=== PATIENT | female | born 1970 | race Caucasian/White ===

== ENCOUNTER 2018-09-17 10:30 | Outpatient (CLI) | payer OTHER | END 2018-09-17 10:34 | disposition home or self-care (01) | LOC: MAMO-SONO 10:30 | DX: N60.09 Solitary cyst of unspecified breast (principal); Z12.31 Encounter for screening mammogram for malignant neoplasm of breast; N84.0 Polyp of corpus uteri; D21.9 Benign neoplasm of connective and other soft tissue, unspecified ==

== ENCOUNTER 2018-12-26 06:00 | Day surgery (SDC) | payer OTHER ==
[~2018-12-26 06:00] MED LIST: IMITREX50 MG PO
[2018-12-26] MEDS ORDERED: MOTRIN IB200 MG PO (10:57)
== END 2018-12-26 13:00 | disposition home or self-care (01) ==
LOC: CIR.AMB 06:00
DX: N84.0 Polyp of corpus uteri (principal)

== ENCOUNTER → 2020-06-09 | Emergency (ER) | payer OTHER ==
[~2020-06-09] VITALS: Ht 172.7 cm; Wt 78.9 kg
[~2020-06-09] MED LIST changes: +MOTRIN IB200 MG PO
== END | disposition left against medical advice (07) ==
LOC: ER 16:26
DX: S20.212A Contusion of left front wall of thorax, initial encounter (principal); R10.32 Left lower quadrant pain; W22.8XXA Striking against or struck by other objects, initial encounter; Y93.89 Activity, other specified; Y92.018 Other place in single-family (private) house as the place of occurrence of the external cause; Y99.8 Other external cause status

== ENCOUNTER → 2020-12-20 | Outpatient (CLI) | payer OTHER | END | disposition home or self-care (01) | LOC: MAMO-SONO 11:15 | PROVIDERS: ATTEND Obstetrics & Gynecology | DX: N60.11 Diffuse cystic mastopathy of right breast (principal) ==

== ENCOUNTER 2021-04-20 08:20 | Emergency (ER) | payer OTHER ==
[~2021-04-20] VITALS: Ht 152.4 cm; Wt 81.6 kg
[2021-04-20] MEDS ORDERED: KETO10TA2 PO (10:41)
== END 2021-04-20 10:52 | disposition home or self-care (01) ==
LOC: ER 08:20
DX: S82.62XA Displaced fracture of lateral malleolus of left fibula, initial encounter for closed fracture (principal); W01.198A Fall on same level from slipping, tripping and stumbling with subsequent striking against other object, initial encounter; Y93.K1 Activity, walking an animal; Y92.488 Other paved roadways as the place of occurrence of the external cause; Y99.8 Other external cause status

== ENCOUNTER 2021-04-27 08:55 | Outpatient (CLI) | payer OTHER ==
[~2021-04-27 08:55] MED LIST changes: +KETO10TA2 PO
== END 2021-04-27 08:58 | disposition home or self-care (01) ==
LOC: RAD 08:55
PROVIDERS: ATTEND Orthopaedic Surgery
DX: S82.62XA Displaced fracture of lateral malleolus of left fibula, initial encounter for closed fracture (principal)

== ENCOUNTER 2021-06-15 13:22 | Outpatient (CLI) | payer OTHER | END 2021-06-15 13:31 | disposition home or self-care (01) | LOC: RAD 13:22 | PROVIDERS: ATTEND Orthopaedic Surgery | DX: S82.62XD Displaced fracture of lateral malleolus of left fibula, subsequent encounter for closed fracture with routine healing (principal) ==

== ENCOUNTER 2021-08-17 08:48 | Outpatient (CLI) | payer OTHER | END 2021-08-17 09:04 | disposition home or self-care (01) | LOC: RAD 08:48 | PROVIDERS: ATTEND Orthopaedic Surgery | DX: S82.62XD Displaced fracture of lateral malleolus of left fibula, subsequent encounter for closed fracture with routine healing (principal) ==

== ENCOUNTER 2022-10-16 13:35 | Outpatient (CLI) | payer OTHER | END 2022-10-16 13:47 | disposition home or self-care (01) | LOC: MAMO-SONO 13:35 | PROVIDERS: ATTEND Obstetrics & Gynecology | DX: Z12.31 Encounter for screening mammogram for malignant neoplasm of breast (principal); N60.11 Diffuse cystic mastopathy of right breast; N60.12 Diffuse cystic mastopathy of left breast ==

== ENCOUNTER → 2022-12-07 | Outpatient (CLI) | payer OTHER | END | disposition home or self-care (01) | LOC: MAMO-SONO 13:47 | PROVIDERS: ATTEND Surgery | DX: D24.1 Benign neoplasm of right breast (principal) ==

== ENCOUNTER 2023-09-18 14:48 | Emergency (ER) | payer OTHER ==
[~2023-09-18] VITALS: Ht 175.3 cm; Wt 80.7 kg
[2023-09-18] MEDS ORDERED: AMOX-CLAV 875-1 EAC1 PO (17:08)
[2023-09-18] MEDS ORDERED: ZYRTEC10 MG PO (17:08)
== END 2023-09-18 17:38 | disposition home or self-care (01) ==
LOC: ER 14:48
DX: B86 Scabies (principal)

== ENCOUNTER 2024-03-27 10:34 | Outpatient (CLI) | payer OTHER ==
[~2024-03-27 10:34] MED LIST changes: +AMOX-CLAV 875-1 EAC1 PO; +ZYRTEC10 MG PO
== END 2024-03-27 10:52 | disposition home or self-care (01) ==
LOC: SONOGRAMA 10:34
DX: E04.2 Nontoxic multinodular goiter (principal)

== ENCOUNTER 2024-11-02 08:58 | Outpatient (CLI) | payer OTHER | END 2024-11-02 09:03 | disposition home or self-care (01) | LOC: SONOGRAMA 08:58 | PROVIDERS: ATTEND General Practice | DX: R94.6 Abnormal results of thyroid function studies (principal) ==